=== PATIENT | female | born 1960 | race Caucasian/White ===

== ENCOUNTER 2019-10-30 08:51 | Inpatient (IN) ==
[2019-10-30] MEDS ORDERED: GLUCAGON 1 MG VIAL IM PRN ×2 (09:29→13:12)
[2019-10-30] MEDS ORDERED: CEFUROXIME INJ 1,500 MG in SYRINGE 1 EACH IV ONE (09:29)
[2019-10-30] MEDS ORDERED: DEXTROSE 10% 250 ML BAG IV PRN (09:29)
[2019-10-30 10:01] LABS: Basophils # 0.1 10*3/uL (0.0-0.2); Basophils % 1.2 % (0.0-0.8); Eosinophils # 0.1 10*3/uL (0.0-0.87); Eosinophils % 1.9 % (0.00-10.9); Hematocrit 41.5 VOL% (35.7-47.0); Hemoglobin 13.8 GM/DL (12.0-16.0); Immature Granulocytes % 0.4 %; Immature Granulocytes Absolute 0.03 #; Lymphocytes # 1.9 10*3/uL (1.4-4.0); Lymphocytes % 25.8 % (21.3-54.2); Mean Corpuscular HGB Conc 33.3 GM/DL (32-36); Mean Corpuscular Volume 92.6 FL (87-102); Monocytes % 9.5 % (1.7-12.7); Neutrophils % 61.2 % (38.7-73.9); Platelet Count 284 T/CUMM (130-400); Red Blood Count 4.48 MC/CUMM (3.8-5.5); Red Cell Distribution Width 12.7 % (9.3-17.3); White Blood Count 7.3 T/CUMM (4-12)
[2019-10-30 10:05] LABS: ABG Base Excess 1.2 MMOL/L (-2.5-2.5); ABG HCO3 25.5 MMOL/L (20-26); ABG Oxygen Saturation 97.7 % (95-100); ABG PCO2 39.4 MM HG (35-48); ABG PH 7.421 (7.35-7.45); ABG PO2 91.7 MM HG (80-95); ABG TCO2 22.2 MMOL/L (23-27); Pt O2 Delivery Device Room Air
[2019-10-30 10:31] LABS: Albumin 4.5 G/DL (3.4-5.0); Bilirubin,Total 0.6 MG/DL (0.2-1.0); Calcium 10.2 MG/DL (8.5-10.1); Osmolality,Calculated 271.2 MOS/KG (273-304); Total Protein 8.1 G/DL (6.4-8.3)
[2019-10-30] MEDS ORDERED: NITROGLYCERIN SL 0.4 MG TABLET SL PRN (13:09)
[2019-10-30] MEDS ORDERED: MORPHINE 4 MG/1 ML VIAL IV PRN (13:11)
[2019-10-30] MEDS ORDERED: DEXTROSE 50% 25 GM/50 ML VIAL IV PRN (13:12)
[2019-10-30] MEDS: SODIUM CHLORIDE 0.9% 1,000 ML IV SCH (15:00)
[2019-10-30] MEDS: CHLORHEXIDINE 4% SOLN 118 ML BOTTLE TOP SCH ×2 (15:01→21:41)
[2019-10-30] MEDS: INSULIN LISPRO 100 UNIT/ML SUBCUT SCH ×2 (17:38→21:35)
[2019-10-30] MEDS ORDERED: EZETIMIBE 10 MG TABLET PO SCH (21:00)
[2019-10-30] MEDS ORDERED: ISOSORBIDE MONONITRATE 60 MG TABLET PO SCH (21:00)
[2019-10-30] MEDS: CHLORHEXIDINE 0.12% ORAL RINSE 60 ML BOTTLE SWISH/SPIT SCH (21:29)
[2019-10-31] MEDS ORDERED: VANCOMYCIN 1,000 MG VIAL ONE (04:20)
[2019-10-31] MEDS ORDERED: VANCOMYCIN 500 MG VIAL ONE (04:20)
[2019-10-31] MEDS ORDERED: PAPAVERINE 60 MG/2 ML VIAL ONE (04:20)
[2019-10-31] MEDS ORDERED: HEPARIN/NACL 0.9% 2 UNITS/ML 500 ML IV ONE (05:56)
[2019-10-31] MEDS ORDERED: CALCIUM CHLORIDE 1,000 MG/10 ML VIAL IV ONE (05:56)
[2019-10-31] MEDS ORDERED: ePHEDrine 50 MG/ML AMP ONE (05:57)
[2019-10-31] MEDS ORDERED: MIDAZOLAM 10 MG/2 ML VIAL ONE (05:57)
[2019-10-31] MEDS ORDERED: VECURONIUM 10 MG VIAL IV ONE (05:57)
[2019-10-31] MEDS ORDERED: SUFentanil 250 MCG/5 ML AMP ONE (05:57)
[2019-10-31] MEDS ORDERED: ETOMIDATE 40 MG/20 ML VIAL IV ONE (05:57)
[2019-10-31] MEDS ORDERED: PHENYLEPHRINE 10 MG/1 ML VIAL IV ONE (05:57)
[2019-10-31] MEDS ORDERED: NITROGLYCERIN DRIP 50 MG/250 ML BOTTLE IV ONE (05:58)
[2019-10-31] MEDS ORDERED: AMINOCAPROIC ACID 5,000 MG/20 ML VIAL ONE (05:58)
[2019-10-31] MEDS ORDERED: SODIUM CHLORIDE 0.9% 1,000 ML IV ONE (05:58)
[2019-10-31] MEDS ORDERED: LACTATED RINGERS 1,000 ML IV ONE (05:58)
[2019-10-31] MEDS ORDERED: SODIUM CHLORIDE 0.9% 500 ML IV ONE (05:58)
[2019-10-31] MEDS: CEFUROXIME INJ 1,500 MG in SYRINGE 1 EACH IV ONE ×2 (07:30→08:42)
[2019-10-31] MEDS ORDERED: NITROPRUSSIDE 50 MG/2 ML VIAL ONE (07:33)
[2019-10-31] MEDS ORDERED: PHENYLEPHRINE DRIP 40 MG/250 ML PREMIX IV ONE (07:33)
[2019-10-31] MEDS ORDERED: POTASSIUM CHLORIDE RIDER 100 ML IV ONE (07:33)
[2019-10-31] MEDS ORDERED: SODIUM BICARBONATE 50 MEQ/50 ML VIAL IV ONE ×2 (07:33→11:28)
[2019-10-31] MEDS ORDERED: CALCIUM CHLORIDE 1,000 MG/10 ML SYRINGE IV ONE (07:33)
[2019-10-31 07:46] LABS: ABG Base Excess 0.6 MMOL/L (-2.5-2.5); ABG HCO3 24.9 MMOL/L (20-26); ABG Oxygen Saturation 99.9 % (95-100); ABG PCO2 38.5 MM HG (35-48); ABG PH 7.418 (7.35-7.45); ABG TCO2 21.8 MMOL/L (23-27); Glucose Heart Surgery 169 MG/DL (74-106); Hematocrit Heart Surgery 38.4 PERCENT (37-47); Hemoglobin Heart Surgery 12.5 G/DL (12.0-16.0); Ionized Calcium Arterial 1.22 MMOL/L (1.21-1.46); PCO2 Patient Temp Arterial 38.5 MMHG; PH Patient Temp Arterial 7.418; Patient Temperature 37 CELCIUS; Potassium Heart/CVR 3.7 MMOL/L (3.5-5.1); Sodium Heart/CVR 138 MMOL/L (135-145)
[2019-10-31 07:55] LABS: Apearance,Urine CLEAR (Clear); Bilirubin,Urine Negative (Negative); Blood, Urine Negative (Negative); Glucose,Urine (UA) Negative (Negative); Ketones,Urine Negative (Negative); Mucus,Urine Occasional /LPF (Occasional); Nitrite,Urine Negative (Negative); Protein,Urine Negative; RBC,Urine <1 /HPF (0-4); Squamous Epithelial Cell,Urine Occasional /HPF (0-10); Urine Color Yellow (Yellow); Urine Specific Gravity 1.021 (1.001-1.035); WBC,Urine <1 /HPF (0-6)
[2019-10-31] MEDS: CHLORHEXIDINE 4% SOLN 118 ML BOTTLE TOP SCH (08:40)
[2019-10-31] MEDS: INSULIN LISPRO 100 UNIT/ML SUBCUT SCH ×2 (08:40→14:20)
[2019-10-31] MEDS: CHLORHEXIDINE 0.12% ORAL RINSE 60 ML BOTTLE SWISH/SPIT SCH ×2 (08:40→20:38)
[2019-10-31] MEDS ORDERED: ASPIRIN EC 81 MG TABLET PO SCH (09:00)
[2019-10-31] MEDS ORDERED: PANTOPRAZOLE 40 MG TABLET PO SCH (09:00)
[2019-10-31 09:21] LABS: Hemoglobin Heart Surgery 8.4 G/DL (12.0-16.0); PCO2 Patient Temp Venous 35.1 MM HG; PH Patient Temp Venous 7.461; PO2 Patient Temp Venous 36.4 MM HG; Potassium Heart/CVR 4.7 MMOL/L (3.5-5.1); VBG Base Excess 1.5 MEQ/L (0-4); VBG HCO3 25.5 MEQ/L (24-28); VBG Oxygen Saturation 78.9 %; VBG PCO2 38.7 MMHG (41-51); VBG PH 7.431; VBG PO2 41.9 MMHG (17-40)
[2019-10-31 09:52] LABS: Hematocrit Heart Surgery 30.9 PERCENT (37-47); PCO2 Patient Temp Venous 38.3 MM HG; PH Patient Temp Venous 7.432; PO2 Patient Temp Venous 36.7 MM HG; Potassium Heart/CVR 4.3 MMOL/L (3.5-5.1); VBG Base Excess 1.3 MEQ/L (0-4); VBG HCO3 25.1 MEQ/L (24-28); VBG Oxygen Saturation 70.9 %; VBG PCO2 38.3 MMHG (41-51); VBG PH 7.432; VBG PO2 36.7 MMHG (17-40)
[2019-10-31 10:21] LABS: Hematocrit Heart Surgery 32.6 PERCENT (37-47); Hemoglobin Heart Surgery 10.5 G/DL (12.0-16.0); PCO2 Patient Temp Venous 35.3 MM HG; PH Patient Temp Venous 7.441; PO2 Patient Temp Venous 36.8 MM HG; Potassium Heart/CVR 4.4 MMOL/L (3.5-5.1); VBG Base Excess 0.3 MEQ/L (0-4); VBG HCO3 24.3 MEQ/L (24-28); VBG Oxygen Saturation 74.1 %; VBG PH 7.426; VBG PO2 39.4 MMHG (17-40)
[2019-10-31] MEDS ORDERED: AMIODARONE 150 MG/3 ML VIAL ONE ×2 (10:22→12:13)
[2019-10-31 11:22] LABS: ABG Base Excess -1.8 MMOL/L (-2.5-2.5); ABG HCO3 22.9 MMOL/L (20-26); ABG Oxygen Saturation 99.4 % (95-100); ABG PCO2 38.9 MM HG (35-48); ABG PH 7.381 (7.35-7.45); ABG TCO2 20.9 MMOL/L (23-27); Glucose Heart Surgery 277 MG/DL (74-106); Hematocrit Heart Surgery 31.3 PERCENT (37-47); Hemoglobin Heart Surgery 10.1 G/DL (12.0-16.0); Ionized Calcium Arterial 1.19 MMOL/L (1.21-1.46); PCO2 Patient Temp Arterial 38.9 MMHG; PH Patient Temp Arterial 7.381; Patient Temperature 37 CELCIUS; Potassium Heart/CVR 3.4 MMOL/L (3.5-5.1); Sodium Heart/CVR 137 MMOL/L (135-145)
[2019-10-31] MEDS ORDERED: LIDOCAINE 2% 5 ML VIAL ONE (11:27)
[2019-10-31] MEDS ORDERED: MANNITOL 100 GM/500 ML BAG IV ONE (11:27)
[2019-10-31] MEDS ORDERED: PROTAMINE SULFATE 50 MG/5 ML VIAL IV ONE (11:28)
[2019-10-31] MEDS ORDERED: methylPREDNISolone SOD SUC 1,000 MG/8 ML VIAL ONE (11:28)
[2019-10-31] MEDS ORDERED: PROTAMINE SULFATE 250 MG/25 ML VIAL IV ONE (11:28)
[2019-10-31] MEDS ORDERED: ALBUMIN 25% 25 GM/100 ML VIAL IV ONE (11:28)
[2019-10-31] MEDS ORDERED: DEXTROSE 5% KCL 20 MEQ 20 MEQ/1,000 ML BAG IV ONE (11:28)
[2019-10-31] MEDS ORDERED: MAGNESIUM SULFATE 5 GM/10 ML VIAL IV ONE (11:28)
[2019-10-31] MEDS ORDERED: FUROSEMIDE 20 MG/2 ML VIAL ONE (11:28)
[2019-10-31] MEDS ORDERED: HEPARIN 10,000 UNIT/10 ML VIAL ONE (11:28)
[2019-10-31] MEDS ORDERED: POTASSIUM CHLORIDE 20 MEQ/10 ML VIAL ONE (11:28)
[2019-10-31] MEDS ORDERED: AMIODARONE 450 MG/9 ML VIAL IV ONE (11:50)
[2019-10-31] MEDS ORDERED: ALBUMIN 5% 12.5 GM in PREMIX 1 EACH IV PRN (11:55)
[2019-10-31] MEDS ORDERED: CHLORHEXIDINE 4% SOLN 118 ML BOTTLE TOP PRN (11:55)
[2019-10-31] MEDS ORDERED: MORPHINE 10 MG/1 ML VIAL IV PRN (11:55)
[2019-10-31] MEDS ORDERED: VECURONIUM 10 MG VIAL IV PRN ×2 (11:55)
[2019-10-31] MEDS ORDERED: NITROPRUSSIDE 100 MG in DEXTROSE 5% 250 ML IV PRN (11:55)
[2019-10-31] MEDS ORDERED: MIDAZOLAM 2 MG/2 ML VIAL IV PRN (11:55)
[2019-10-31] MEDS ORDERED: LACTATED RINGERS 250 ML IV PRN (11:55)
[2019-10-31] MEDS ORDERED: INSULIN REGULAR 100 UNIT/ML IV ONE (11:55)
[2019-10-31] MEDS ORDERED: MIDAZOLAM 10 MG/2 ML VIAL IV PRN (11:55)
[2019-10-31] MEDS ORDERED: MAGNESIUM SULF RIDER 4 GM in PREMIX 1 EACH IV PRN (11:55)
[2019-10-31] MEDS ORDERED: POTASSIUM CHLORIDE RIDER 10 MEQ in PREMIX 1 EACH IV PRN (11:55)
[2019-10-31] MEDS ORDERED: DEXTROSE 10% 250 ML BAG IV PRN ×2 (11:55)
[2019-10-31] MEDS ORDERED: ACETAMINOPHEN 650 MG SUPP RECTAL PRN (11:55)
[2019-10-31] MEDS ORDERED: CALCIUM CHLORIDE 1,000 MG/10 ML SYRINGE IV PRN (11:55)
[2019-10-31] MEDS ORDERED: MAGNESIUM SULF RIDER 2 GM in PREMIX 1 EACH IV PRN (11:55)
[2019-10-31] MEDS ORDERED: AMIODARONE INJ 450 MG in DEXTROSE 5% 241 ML IV SCH (12:10)
[2019-10-31] MEDS ORDERED: ESMOLOL 100 MG/10 ML VIAL IV ONE (12:13)
[2019-10-31] MEDS ORDERED: SEVOFLURANE 1 UNIT/15 MINUTE INH ONE (12:15)
[2019-10-31 12:23] LABS: ABG Base Excess -2.4 MMOL/L (-2.5-2.5); ABG HCO3 22.4 MMOL/L (20-26); ABG Oxygen Saturation 96.5 % (95-100); ABG PH 7.349 (7.35-7.45); ABG PO2 91.1 MM HG (80-95); ABG TCO2 20.9 MMOL/L (23-27); Glucose Heart Surgery 259 MG/DL (74-106); Hematocrit Heart Surgery 34.2 PERCENT (37-47); Hemoglobin Heart Surgery 11.1 G/DL (12.0-16.0); Potassium Heart/CVR 3.8 MMOL/L (3.5-5.1)
[2019-10-31 12:24] LABS: Basophils # 0.1 10*3/uL (0.0-0.2); Basophils % 0.5 % (0.0-0.8); Eosinophils # 0.1 10*3/uL (0.0-0.87); Eosinophils % 0.3 % (0.00-10.9); Hematocrit 32.7 VOL% (35.7-47.0); Hemoglobin 10.8 GM/DL (12.0-16.0); Immature Granulocytes % 0.7 %; Immature Granulocytes Absolute 0.13 #; Lymphocytes # 2.5 10*3/uL (1.4-4.0); Lymphocytes % 12.9 % (21.3-54.2); Mean Corpuscular Volume 92.9 FL (87-102); Mean Platelet Volume 10.3 FL (9.6-12.0); Monocytes % 6.7 % (1.7-12.7); Neutrophils % 78.9 % (38.7-73.9); Platelet Count 225 T/CUMM (130-400); Red Blood Count 3.52 MC/CUMM (3.8-5.5); Red Cell Distribution Width 12.8 % (9.3-17.3)
[2019-10-31] MEDS: SODIUM CHLORIDE 0.45% 1,000 ML IV SCH ×2 (12:30→12:31)
[2019-10-31] MEDS: PHENYLEPHRINE DRIP 40 MG/250 ML PREMIX IV PRN (12:31)
[2019-10-31] MEDS: POTASSIUM CHLORIDE RIDER 20 MEQ in PREMIX 1 EACH IV PRN ×5 (12:34→17:13)
[2019-10-31 12:35] LABS: INR 1.1; PT Patient Result 12.4 SECS (9.6-12.2); Partial Thromboplastin Time 27.4 SECS (20.8-36.0)
[2019-10-31] MEDS: INSULIN REGULAR DRIP 100 ML IV SCH ×2 (12:39→19:07)
[2019-10-31 12:54] LABS: CKMB % 8.5 %
[2019-10-31 12:59] LABS: Albumin 3.7 G/DL (3.4-5.0); Bilirubin,Total 0.6 MG/DL (0.2-1.0); Calcium 8.3 MG/DL (8.5-10.1); Osmolality,Calculated 284.7 MOS/KG (273-304); Total Protein 6.5 G/DL (6.4-8.3)
[2019-10-31 13:02] LABS: Troponin I 4.69 NG/ML (0.00-0.045)
[2019-10-31 13:22] LABS: ABG Base Excess -4.9 MMOL/L (-2.5-2.5); ABG HCO3 19.8 MMOL/L (20-26); ABG Oxygen Saturation 96.3 % (95-100); ABG PCO2 35.2 MM HG (35-48); ABG PH 7.368 (7.35-7.45); ABG PO2 96.1 MM HG (80-95); ABG TCO2 20.9 MMOL/L (23-27); Glucose Heart Surgery 273 MG/DL (74-106); Hemoglobin Heart Surgery 10.9 G/DL (12.0-16.0); Potassium Heart/CVR 3.4 MMOL/L (3.5-5.1)
[2019-10-31] MEDS: SODIUM CHLORIDE 0.9% 1,000 ML IV SCH (14:20)
[2019-10-31] MEDS: INSULIN REGULAR 100 UNIT/ML IV PRN ×2 (14:39→17:16)
[2019-10-31 14:41] LABS: ABG Base Excess -5.9 MMOL/L (-2.5-2.5); ABG HCO3 19.6 MMOL/L (20-26); ABG Oxygen Saturation 96.4 % (95-100); ABG PCO2 36.2 MM HG (35-48); ABG PH 7.335 (7.35-7.45); ABG PO2 87.1 MM HG (80-95); ABG TCO2 17.4 MMOL/L (23-27); Glucose Heart Surgery 276 MG/DL (74-106); Hematocrit Heart Surgery 34.3 PERCENT (37-47); Hemoglobin Heart Surgery 11.1 G/DL (12.0-16.0); Potassium Heart/CVR 4.2 MMOL/L (3.5-5.1)
[2019-10-31] MEDS: MORPHINE 4 MG/1 ML VIAL IV PRN ×2 (14:54→18:38)
[2019-10-31 15:41] LABS: ABG Base Excess -6.7 MMOL/L (-2.5-2.5); ABG HCO3 18.9 MMOL/L (20-26); ABG Oxygen Saturation 94.8 % (95-100); ABG PCO2 36.8 MM HG (35-48); ABG PH 7.318 (7.35-7.45); ABG PO2 78.9 MM HG (80-95); ABG TCO2 17.3 MMOL/L (23-27); Glucose Heart Surgery 245 MG/DL (74-106); Hematocrit Heart Surgery 31.8 PERCENT (37-47); Hemoglobin Heart Surgery 10.3 G/DL (12.0-16.0); Potassium Heart/CVR 3.5 MMOL/L (3.5-5.1)
[2019-10-31 16:57] LABS: ABG Base Excess -6.1 MMOL/L (-2.5-2.5); ABG HCO3 19.3 MMOL/L (20-26); ABG PCO2 35.9 MM HG (35-48); ABG PH 7.334 (7.35-7.45); ABG TCO2 17.4 MMOL/L (23-27); Glucose Heart Surgery 234 MG/DL (74-106); Hemoglobin Heart Surgery 10.7 G/DL (12.0-16.0); Potassium Heart/CVR 4.2 MMOL/L (3.5-5.1)
[2019-10-31 17:50] LABS: ABG Base Excess -5.8 MMOL/L (-2.5-2.5); ABG HCO3 19.6 MMOL/L (20-26); ABG PCO2 35.6 MM HG (35-48); ABG PH 7.342 (7.35-7.45); ABG PO2 71.8 MM HG (80-95); ABG TCO2 17.5 MMOL/L (23-27); Glucose Heart Surgery 222 MG/DL (74-106); Hematocrit Heart Surgery 33.4 PERCENT (37-47); Hemoglobin Heart Surgery 10.8 G/DL (12.0-16.0); Potassium Heart/CVR 4.6 MMOL/L (3.5-5.1)
[2019-10-31] MEDS: ONDANSETRON 4 MG/2 ML VIAL IV PRN ×2 (18:47→23:38)
[2019-10-31] MEDS ORDERED: FUROSEMIDE 40 MG/4 ML VIAL IV ONE (18:54)
[2019-10-31] MEDS ORDERED: FUROSEMIDE 40 MG/4 ML VIAL IV PRN (18:54)
[2019-10-31] MEDS: ALBUTEROL/IPRATROPIUM 3 ML NEB RESP TX SCH (19:09)
[2019-10-31 20:08] LABS: ABG Base Excess -3.6 MMOL/L (-2.5-2.5); ABG HCO3 21.3 MMOL/L (20-26); ABG Oxygen Saturation 91.7 % (95-100); ABG PCO2 38.6 MM HG (35-48); ABG PH 7.355 (7.35-7.45); ABG PO2 63.8 MM HG (80-95); ABG TCO2 19.2 MMOL/L (23-27); Glucose Heart Surgery 186 MG/DL (74-106); Hematocrit Heart Surgery 36.8 PERCENT (37-47); Hemoglobin Heart Surgery 11.9 G/DL (12.0-16.0); Potassium Heart/CVR 4.2 MMOL/L (3.5-5.1)
[2019-10-31] MEDS ORDERED: METOPROLOL TARTRATE 25 MG TABLET PO ONE (20:24)
[2019-10-31 20:29] LABS: Troponin I 10.3 NG/ML (0.00-0.045)
[2019-10-31] MEDS: CEFUROXIME INJ 1,500 MG in SYRINGE 1 EACH IV SCH (20:33)
[2019-10-31 22:24] LABS: ABG Base Excess -0.5 MMOL/L (-2.5-2.5); ABG HCO3 23.9 MMOL/L (20-26); ABG Oxygen Saturation 93.1 % (95-100); ABG PCO2 38.2 MM HG (35-48); ABG PH 7.405 (7.35-7.45); ABG PO2 65.2 MM HG (80-95); ABG TCO2 21.5 MMOL/L (23-27); Glucose Heart Surgery 108 MG/DL (74-106); Hematocrit Heart Surgery 34.3 PERCENT (37-47); Hemoglobin Heart Surgery 11.1 G/DL (12.0-16.0); Potassium Heart/CVR 4.2 MMOL/L (3.5-5.1)
[2019-10-31] MEDS: AMIODARONE INJ 450 MG in DEXTROSE 5% 241 ML IV SCH (22:59)
[2019-10-31 23:41] LABS: ABG Base Excess -0.2 MMOL/L (-2.5-2.5); ABG HCO3 24.3 MMOL/L (20-26); ABG Oxygen Saturation 98.3 % (95-100); ABG PCO2 36.7 MM HG (35-48); ABG PH 7.422 (7.35-7.45); ABG TCO2 21.5 MMOL/L (23-27); Glucose Heart Surgery 104 MG/DL (74-106); Hematocrit Heart Surgery 33.9 PERCENT (37-47); Potassium Heart/CVR 4.1 MMOL/L (3.5-5.1)
[2019-11-01 00:53] LABS: ABG Base Excess 0.5 MMOL/L (-2.5-2.5); ABG HCO3 24.8 MMOL/L (20-26); ABG Oxygen Saturation 97.2 % (95-100); ABG PCO2 36.5 MM HG (35-48); ABG PH 7.434 (7.35-7.45); ABG PO2 83.5 MM HG (80-95); ABG TCO2 21.9 MMOL/L (23-27); Glucose Heart Surgery 110 MG/DL (74-106); Hematocrit Heart Surgery 33.3 PERCENT (37-47); Hemoglobin Heart Surgery 10.8 G/DL (12.0-16.0); Potassium Heart/CVR 4.1 MMOL/L (3.5-5.1)
[2019-11-01] MEDS: ALBUTEROL/IPRATROPIUM 3 ML NEB RESP TX SCH ×4 (00:55→19:45)
[2019-11-01] MEDS: MORPHINE 4 MG/1 ML VIAL IV PRN ×2 (02:47→20:45)
[2019-11-01] MEDS: INSULIN REGULAR DRIP 100 ML IV SCH ×2 (04:20→21:43)
[2019-11-01 04:21] LABS: ABG Base Excess 0.8 MMOL/L (-2.5-2.5); ABG HCO3 25.2 MMOL/L (20-26); ABG Oxygen Saturation 98.7 % (95-100); ABG PCO2 35.3 MM HG (35-48); ABG PH 7.446 (7.35-7.45); ABG TCO2 20.7 MMOL/L (23-27); Glucose Heart Surgery 147 MG/DL (74-106); Hematocrit Heart Surgery 45.1 PERCENT (37-47); Hemoglobin Heart Surgery 14.7 G/DL (12.0-16.0); Potassium Heart/CVR 4.2 MMOL/L (3.5-5.1)
[2019-11-01 04:33] LABS: Basophils % 0.1 % (0.0-0.8); Hematocrit 31.4 VOL% (35.7-47.0); Hemoglobin 10.9 GM/DL (12.0-16.0); Immature Granulocytes % 0.6 %; Immature Granulocytes Absolute 0.11 #; Mean Corpuscular HGB Conc 34.7 GM/DL (32-36); Mean Corpuscular Volume 89.7 FL (87-102); Mean Platelet Volume 10.9 FL (9.6-12.0); Monocytes % 7.3 % (1.7-12.7); Platelet Count 228 T/CUMM (130-400); Red Cell Distribution Width 12.8 % (9.3-17.3)
[2019-11-01 04:49] LABS: Albumin 4.2 G/DL (3.4-5.0); Bilirubin,Direct 0.18 MG/DL (0.0-0.20); Bilirubin,Total 0.8 MG/DL (0.2-1.0); CKMB % 8.1 %; Calcium 8.9 MG/DL (8.5-10.1); Osmolality,Calculated 275.8 MOS/KG (273-304); Total Protein 7.1 G/DL (6.4-8.3)
[2019-11-01 04:53] LABS: Troponin I 26.3 NG/ML (0.00-0.045)
[2019-11-01] MEDS: KETOROLAC 30 MG/1 ML VIAL IV SCH ×4 (07:17→23:38)
[2019-11-01] MEDS ORDERED: METOPROLOL TARTRATE 25 MG TABLET PO SCH (09:00)
[2019-11-01] MEDS: METOPROLOL TARTRATE 50 MG TABLET PO SCH ×2 (11:45→21:00)
[2019-11-01] MEDS: lisinopriL 10 MG TABLET PO SCH (11:45)
[2019-11-01] MEDS: CHLORHEXIDINE 0.12% ORAL RINSE 60 ML BOTTLE SWISH/SPIT SCH ×2 (11:45→21:00)
[2019-11-01] MEDS: CEFUROXIME INJ 1,500 MG in SYRINGE 1 EACH IV SCH ×2 (11:45→21:00)
[2019-11-01] MEDS: ASPIRIN EC 81 MG TABLET PO SCH (11:45)
[2019-11-01 12:58] LABS: CKMB % 6.4 %; Troponin I 18.9 NG/ML (0.00-0.045)
[2019-11-01] MEDS: AMIODARONE INJ 450 MG in DEXTROSE 5% 241 ML IV SCH ×2 (15:52→23:05)
[2019-11-01] MEDS: SODIUM CHLORIDE 0.45% 1,000 ML IV SCH ×2 (21:42)
[2019-11-01] MEDS: INSULIN REGULAR 100 UNIT/ML SUBCUT SCH (23:38)
[2019-11-02] MEDS: ALBUTEROL/IPRATROPIUM 3 ML NEB RESP TX SCH ×4 (01:13→19:11)
[2019-11-02] MEDS: PHENYLEPHRINE DRIP 40 MG/250 ML PREMIX IV PRN ×2 (02:37→10:15)
[2019-11-02 03:31] LABS: Albumin 3.3 G/DL (3.4-5.0); Bilirubin,Direct 0.12 MG/DL (0.0-0.20); Bilirubin,Total 0.4 MG/DL (0.2-1.0); Calcium 8.6 MG/DL (8.5-10.1); Osmolality,Calculated 278.2 MOS/KG (273-304); Total Protein 6.5 G/DL (6.4-8.3)
[2019-11-02] MEDS: INSULIN REGULAR 100 UNIT/ML SUBCUT SCH ×5 (03:46→20:38)
[2019-11-02 05:12] LABS: Basophils % 0.1 % (0.0-0.8); Hematocrit 29.2 VOL% (35.7-47.0); Hemoglobin 9.4 GM/DL (12.0-16.0); Immature Granulocytes Absolute 0.24 #; Lymphocytes # 3.3 10*3/uL (1.4-4.0); Lymphocytes % 13.4 % (21.3-54.2); Mean Corpuscular HGB Conc 32.2 GM/DL (32-36); Mean Corpuscular Volume 96.1 FL (87-102); Mean Platelet Volume 11.3 FL (9.6-12.0); Monocytes % 12.4 % (1.7-12.7); Neutrophils % 73.1 % (38.7-73.9); Platelet Count 286 T/CUMM (130-400); Red Blood Count 3.04 MC/CUMM (3.8-5.5); Red Cell Distribution Width 13.4 % (9.3-17.3); White Blood Count 24.6 T/CUMM (4-12)
[2019-11-02 05:38] LABS: Hypochromasia Slight; Lymphocytes 8 % (20-55); Platelet Estimate Adequate; Segmented Neutrophils 78 % (50-85); Total Cells Counted 100
[2019-11-02] MEDS: KETOROLAC 30 MG/1 ML VIAL IV SCH ×4 (06:04→18:39)
[2019-11-02] MEDS: lisinopriL 10 MG TABLET PO SCH (08:23)
[2019-11-02] MEDS: CHLORHEXIDINE 0.12% ORAL RINSE 60 ML BOTTLE SWISH/SPIT SCH ×2 (08:51→20:38)
[2019-11-02] MEDS: AMIODARONE 200 MG TABLET PO SCH ×2 (08:51→20:38)
[2019-11-02] MEDS: ASPIRIN EC 81 MG TABLET PO SCH (08:51)
[2019-11-02] MEDS: MORPHINE 4 MG/1 ML VIAL IV PRN (11:09)
[2019-11-02] MEDS: SODIUM CHLOR 0.45% KCL 20 MEQ 20 MEQ/1,000 ML BAG IV SCH (12:00)
[2019-11-02] MEDS: AMIODARONE INJ 450 MG in DEXTROSE 5% 241 ML IV SCH (13:53)
[2019-11-02] MEDS ORDERED: ACETAMINOPHEN 325 MG TABLET PO PRN (14:21)
[2019-11-03] MEDS: INSULIN REGULAR 100 UNIT/ML SUBCUT SCH ×4 (00:09→16:35)
[2019-11-03] MEDS: KETOROLAC 30 MG/1 ML VIAL IV SCH ×4 (00:14→17:51)
[2019-11-03] MEDS: ALBUTEROL/IPRATROPIUM 3 ML NEB RESP TX SCH ×4 (01:38→19:33)
[2019-11-03 05:07] LABS: Basophils % 0.3 % (0.0-0.8); Eosinophils # 0.1 10*3/uL (0.0-0.87); Eosinophils % 0.5 % (0.00-10.9); Hematocrit 24.9 VOL% (35.7-47.0); Hemoglobin 8.2 GM/DL (12.0-16.0); Immature Granulocytes % 0.6 %; Immature Granulocytes Absolute 0.06 #; Lymphocytes # 2.5 10*3/uL (1.4-4.0); Lymphocytes % 24.3 % (21.3-54.2); Mean Corpuscular HGB Conc 32.9 GM/DL (32-36); Mean Platelet Volume 10.9 FL (9.6-12.0); Monocytes % 9.3 % (1.7-12.7); Platelet Count 168 T/CUMM (130-400); Red Blood Count 2.65 MC/CUMM (3.8-5.5); Red Cell Distribution Width 13.3 % (9.3-17.3); White Blood Count 10.1 T/CUMM (4-12)
[2019-11-03 05:52] LABS: Albumin 3.1 G/DL (3.4-5.0); Bilirubin,Total 0.8 MG/DL (0.2-1.0); Calcium 8.7 MG/DL (8.5-10.1); Osmolality,Calculated 274.1 MOS/KG (273-304); Total Protein 5.9 G/DL (6.4-8.3)
[2019-11-03] MEDS ORDERED: SODIUM CHLORIDE 0.9% 1,000 ML IV PRN (08:01)
[2019-11-03] MEDS: lisinopriL 10 MG TABLET PO SCH (08:08)
[2019-11-03] MEDS: CHLORHEXIDINE 0.12% ORAL RINSE 60 ML BOTTLE SWISH/SPIT SCH (09:09)
[2019-11-03] MEDS: AMIODARONE 200 MG TABLET PO SCH ×2 (09:09→20:50)
[2019-11-03] MEDS: ASPIRIN EC 81 MG TABLET PO SCH (09:09)
[2019-11-03] MEDS: SODIUM CHLOR 0.45% KCL 20 MEQ 20 MEQ/1,000 ML BAG IV SCH (16:35)
[2019-11-04] MEDS: KETOROLAC 30 MG/1 ML VIAL IV SCH ×4 (00:34→18:19)
[2019-11-04] MEDS: ALBUTEROL/IPRATROPIUM 3 ML NEB RESP TX SCH ×4 (00:47→19:20)
[2019-11-04] MEDS ORDERED: ZALEPLON 5 MG CAPSULE PO PRN (07:22)
[2019-11-04] MEDS ORDERED: ACETAMINOPHEN 325 MG TABLET PO PRN (07:22)
[2019-11-04] MEDS ORDERED: MAGNESIUM SULF RIDER 4 GM in PREMIX 1 EACH IV PRN (07:22)
[2019-11-04] MEDS ORDERED: MAGNESIUM HYDROXIDE SUSP 30 ML UDCUP PO PRN (07:22)
[2019-11-04] MEDS ORDERED: ALUMINUM/MAGNES/SIMETH MAX STR 30 ML UDCUP PO PRN (07:22)
[2019-11-04] MEDS ORDERED: GLUCAGON 1 MG VIAL IM PRN (07:22)
[2019-11-04] MEDS ORDERED: ONDANSETRON 4 MG/2 ML VIAL IV PRN (07:22)
[2019-11-04] MEDS ORDERED: DEXTROSE 50% 25 GM/50 ML VIAL IV PRN (07:22)
[2019-11-04] MEDS ORDERED: MAGNESIUM SULF RIDER 2 GM in PREMIX 1 EACH IV PRN (07:22)
[2019-11-04] MEDS ORDERED: oxyCODONE/ACETAMINOPHEN 5-325 MG TABLET PO PRN (07:22)
[2019-11-04 07:54] LABS: Basophils % 0.6 % (0.0-0.8); Eosinophils # 0.2 10*3/uL (0.0-0.87); Eosinophils % 2.6 % (0.00-10.9); Hematocrit 28.3 VOL% (35.7-47.0); Hemoglobin 9.2 GM/DL (12.0-16.0); Immature Granulocytes % 0.7 %; Immature Granulocytes Absolute 0.05 #; Lymphocytes # 1.6 10*3/uL (1.4-4.0); Lymphocytes % 22.6 % (21.3-54.2); Mean Corpuscular HGB Conc 32.5 GM/DL (32-36); Mean Corpuscular Volume 94.6 FL (87-102); Mean Platelet Volume 10.1 FL (9.6-12.0); Neutrophils % 62.5 % (38.7-73.9); Platelet Count 203 T/CUMM (130-400); Red Blood Count 2.99 MC/CUMM (3.8-5.5); Red Cell Distribution Width 13.2 % (9.3-17.3)
[2019-11-04 08:05] LABS: Calcium 8.9 MG/DL (8.5-10.1); Osmolality,Calculated 272.1 MOS/KG (273-304)
[2019-11-04] MEDS: INSULIN REGULAR 100 UNIT/ML SUBCUT SCH ×4 (08:06→21:09)
[2019-11-04] MEDS: SODIUM CHLOR 0.45% KCL 20 MEQ 20 MEQ/1,000 ML BAG IV SCH (08:07)
[2019-11-04] MEDS: AMIODARONE 200 MG TABLET PO SCH ×2 (08:41→21:09)
[2019-11-04] MEDS: ASPIRIN EC 81 MG TABLET PO SCH (08:41)
[2019-11-04] MEDS: DOCUSATE SODIUM 100 MG CAPSULE PO SCH (08:42)
[2019-11-04] MEDS: lisinopriL 10 MG TABLET PO SCH (08:42)
[2019-11-04] MEDS: FERROUS SULFATE 325 MG TABLET PO SCH (08:42)
[2019-11-04] MEDS: LACTOBACILLUS ACIDOPHILUS/BULGARICUS CAPLET PO SCH (08:42)
[2019-11-04] MEDS: PANTOPRAZOLE 40 MG TABLET PO SCH (08:42)
[2019-11-04] MEDS: POTASSIUM CHLORIDE 20 MEQ TABLET PO PRN ×2 (08:42→12:42)
[2019-11-04] MEDS: METOPROLOL SUCCINATE XL 25 MG TABLET PO SCH (08:42)
[2019-11-04] MEDS: GLIMEPIRIDE 2 MG TABLET PO SCH (08:43)
[2019-11-04] MEDS: CHLORHEXIDINE 0.12% ORAL RINSE 60 ML BOTTLE SWISH/SPIT SCH ×2 (08:43→21:12)
[2019-11-04] MEDS ORDERED: hydroCHLOROthiazide 12.5 MG CAPSULE PO SCH (09:00)
[2019-11-05] MEDS: KETOROLAC 30 MG/1 ML VIAL IV SCH ×2 (01:19→05:55)
[2019-11-05] MEDS: ALBUTEROL/IPRATROPIUM 3 ML NEB RESP TX SCH ×2 (02:01→07:50)
[2019-11-05 05:01] LABS: Basophils % 0.4 % (0.0-0.8); Eosinophils # 0.2 10*3/uL (0.0-0.87); Eosinophils % 3.2 % (0.00-10.9); Hematocrit 28.7 VOL% (35.7-47.0); Hemoglobin 9.3 GM/DL (12.0-16.0); Immature Granulocytes % 1.2 %; Immature Granulocytes Absolute 0.09 #; Lymphocytes # 1.7 10*3/uL (1.4-4.0); Lymphocytes % 22.8 % (21.3-54.2); Mean Corpuscular HGB Conc 32.4 GM/DL (32-36); Mean Platelet Volume 10.2 FL (9.6-12.0); Monocytes % 10.6 % (1.7-12.7); Neutrophils % 61.8 % (38.7-73.9); Platelet Count 237 T/CUMM (130-400); Red Blood Count 3.02 MC/CUMM (3.8-5.5); Red Cell Distribution Width 13.4 % (9.3-17.3); White Blood Count 7.6 T/CUMM (4-12)
[2019-11-05 05:18] LABS: Alanine Aminotransferase 27 U/L (13-56); Albumin 2.7 G/DL (3.4-5.0); Alkaline Phosphatase 67 U/L (45-117); Aspartate Amino Transferase 22 U/L (0-37); Bilirubin,Direct < 0.100 MG/DL (0.0-0.20); Bilirubin,Indirect 0.3 MG/DL (0.0-1.0); Blood Urea Nitrogen 17 MG/DL (7-18); Estimated Glom Filtration Rate 120 ML/MIN; Glucose 138 MG/DL (74-106); Osmolality,Calculated 273.1 MOS/KG (273-304); Total Protein 6.1 G/DL (6.4-8.3)
[2019-11-05] MEDS ORDERED: FUROSEMIDE 40 MG/4 ML VIAL IV ONE (06:00)
[2019-11-05] MEDS: SODIUM CHLOR 0.45% KCL 20 MEQ 20 MEQ/1,000 ML BAG IV SCH (08:39)
[2019-11-05] MEDS: ASPIRIN EC 81 MG TABLET PO SCH (08:40)
[2019-11-05] MEDS: INSULIN REGULAR 100 UNIT/ML SUBCUT SCH (08:40)
[2019-11-05] MEDS: GLIMEPIRIDE 2 MG TABLET PO SCH (08:41)
[2019-11-05] MEDS: LACTOBACILLUS ACIDOPHILUS/BULGARICUS CAPLET PO SCH (08:41)
[2019-11-05] MEDS: DOCUSATE SODIUM 100 MG CAPSULE PO SCH (08:41)
[2019-11-05] MEDS: FERROUS SULFATE 325 MG TABLET PO SCH (08:42)
[2019-11-05] MEDS: lisinopriL 10 MG TABLET PO SCH (08:42)
[2019-11-05] MEDS: CHLORHEXIDINE 0.12% ORAL RINSE 60 ML BOTTLE SWISH/SPIT SCH (08:42)
[2019-11-05] MEDS: METOPROLOL SUCCINATE XL 25 MG TABLET PO SCH (08:42)
[2019-11-05] MEDS: AMIODARONE 200 MG TABLET PO SCH (08:42)
[2019-11-05] MEDS: PANTOPRAZOLE 40 MG TABLET PO SCH (08:42)
[2019-11-05 11:49] VITALS: BP 111/60
== END 2019-11-05 11:57 | disposition home health service (06) | DRG 236 ==
LOC: N.TELES 08:51 → N.CVR 10-31 11:45 → N.ICU 11-01 07:19 → N.TELEN 11-03 17:00